=== PATIENT | female | born 1945 | race Caucasian/White ===

== ENCOUNTER → 2016-07-09 | Outpatient (CLI) | payer OTHER, MEDICARE | LOC: FIMAGING 15:58 | PROVIDERS: ATTEND Physician Assistant | DX: S32.10XA Unspecified fracture of sacrum, initial encounter for closed fracture (principal); S32.2XXA Fracture of coccyx, initial encounter for closed fracture; M51.37 Other intervertebral disc degeneration, lumbosacral region; M48.07 Spinal stenosis, lumbosacral region; D25.9 Leiomyoma of uterus, unspecified ==

== ENCOUNTER → 2016-10-16 | Outpatient (CLI) | payer OTHER, MEDICARE | LOC: BRMIMAGING 14:23 | PROVIDERS: ATTEND Internal Medicine Hematology & Oncology | DX: Z13.820 Encounter for screening for osteoporosis (principal); M81.0 Age-related osteoporosis without current pathological fracture; Z78.0 Asymptomatic menopausal state ==

== ENCOUNTER → 2016-11-10 | Outpatient (CLI) | payer OTHER, MEDICARE | LOC: FIMAGING 12:11 | PROVIDERS: ATTEND Internal Medicine Hematology & Oncology | DX: Z12.31 Encounter for screening mammogram for malignant neoplasm of breast (principal); Z85.3 Personal history of malignant neoplasm of breast; Z80.3 Family history of malignant neoplasm of breast | CPT/HCPCS: G0202 ==

== ENCOUNTER → 2016-12-11 | Outpatient (CLI) | payer OTHER, MEDICARE | LOC: FIMAGING 12:51 | PROVIDERS: ATTEND Physician Assistant | DX: M46.92 Unspecified inflammatory spondylopathy, cervical region (principal); M46.93 Unspecified inflammatory spondylopathy, cervicothoracic region; M50.321 Other cervical disc degeneration at C4-C5 level; M48.02 Spinal stenosis, cervical region ==

== ENCOUNTER → 2017-03-04 | Outpatient (CLI) | payer OTHER, MEDICARE | LOC: BHFA 14:00 | PROVIDERS: ATTEND Internal Medicine Cardiovascular Disease | DX: I25.10 Atherosclerotic heart disease of native coronary artery without angina pectoris (principal) | CPT/HCPCS: 78452; 93017; A9500 ==

== ENCOUNTER → 2017-05-08 | Outpatient (CLI) | payer OTHER, MEDICARE | LOC: FIMAGING 15:17 | PROVIDERS: ATTEND Physical Medicine & Rehabilitation | DX: S46.119A Strain of muscle, fascia and tendon of long head of biceps, unspecified arm, initial encounter (principal); M75.101 Unspecified rotator cuff tear or rupture of right shoulder, not specified as traumatic ==

== ENCOUNTER → 2018-01-14 | Outpatient (CLI) | payer OTHER, MEDICARE | LOC: FIMAGING 11:27 | PROVIDERS: ATTEND Physician Assistant | DX: M50.83 Other cervical disc disorders, cervicothoracic region (principal); M53.83 Other specified dorsopathies, cervicothoracic region; M43.13 Spondylolisthesis, cervicothoracic region ==